=== PATIENT | female | born 1940 | race Two or more races ===

== ENCOUNTER 2016-03-30 11:05 | Emergency (ER) | payer MEDICARE, MEDICAID ==
[~2016-03-30] VITALS: Ht 142.2 cm; Wt 65.8 kg
[2016-03-30 12:40] LABS: Basophils # (auto) 0 uL; Basophils % (auto) 0.3 % (0.0-2.0); Eosinophils # (auto) 0.1 uL; Eosinophils % (auto) 1.7 % (0.0-7.0); Hematocrit 37.9 % (36.0-46.0); Hemoglobin 12.5 g/dL (12.2-16.2); Lymphocytes # (auto) 2.4 uL; Lymphocytes % (auto) 38.6 % (10.0-50.0); Mean Corpuscular Hemoglobin 30.9 pg (28.0-32.0); Mean Corpuscular Volume 93.6 fL (80.0-100.0); Mean Platelet Volume 8.1 fL (7.4-10.4); Monocytes # (auto) 0.3 uL; Monocytes % (auto) 4.4 % (0.0-12.0); Neutrophils # (auto) 3.5 uL; Platelet Count (auto) 257 10^3/uL (140-450); Red Cell Distribution Width 12.2 % (11.6-16.0); White Blood Cell 6.3 10^3/uL (4.4-10.8)
[2016-03-30 12:45] LABS: Albumin 3.8 g/dL (3.4-5.0); BUN/Creatinine Ratio 23.6; Bilirubin, Total 0.3 mg/dL (0.2-1.0); Calcium 9.2 mg/dL (8.5-10.1); Potassium 4.1 mmol/L (3.5-5.1); Total Protein 6.8 g/dL (6.4-8.2)
[2016-03-30] MEDS ORDERED: IOHEXOL 350 MG/ML 100ML IJ ONE (13:27)
[2016-03-30] MEDS ORDERED: CEPHALEXIN 250 MG CAP PO ONE (15:00)
[2016-03-30 15:06] VITALS: BP 111/78
== END 2016-03-30 15:37 | disposition home or self-care (01) ==
LOC: ER 11:18
DX: J40 Bronchitis, not specified as acute or chronic (principal); J45.909 Unspecified asthma, uncomplicated; E11.9 Type 2 diabetes mellitus without complications; I10 Essential (primary) hypertension
CPT/HCPCS: 36415; 71020; 71275; 80053; 82962; 85025; 85049; 85379; 93005; 94761; 99285; Q9967

== ENCOUNTER 2016-12-07 21:28 | Emergency (ER) | payer OTHER, MEDICAID ==
[~2016-12-07] VITALS: Ht 152.4 cm; Wt 65.8 kg
[~2016-12-07 21:28] MED LIST: ASPI-498 PO; ATOR20TA50 PO; CLON0.1T PO; FAM20T PO; GABA-494 PO; METF-370 PO; TRAZ50TA2 PO; [UNRECOGNIZED DRUG - CODE] EX
[2016-12-07 22:29] LABS: Basophils # (auto) 0 uL; Basophils % (auto) 0.4 % (0.0-2.0); Eosinophils # (auto) 0.2 uL; Eosinophils % (auto) 2.8 % (0.0-7.0); Hematocrit 37.7 % (36.0-46.0); Lymphocytes # (auto) 3.6 uL; Lymphocytes % (auto) 48.5 % (10.0-50.0); Mean Corpuscular Hemoglobin 32.3 pg (28.0-32.0); Mean Corpuscular Hgb Conc. 34.4 g/dL (32.0-36.0); Mean Corpuscular Volume 93.9 fL (80.0-100.0); Mean Platelet Volume 7.2 fL (6.9-10.8); Monocytes # (auto) 0.5 uL; Monocytes % (auto) 6.8 % (0.0-12.0); Neutrophils % (auto) 41.5 % (37.0-80.0); Nucleated Red Blood Cells % 0.1 %; Platelet Count (auto) 253 10^3/uL (140-450); White Blood Cell 7.3 10^3/uL (4.4-10.8)
[2016-12-07 22:39] LABS: INR 0.94 (0.9-1.15); Partial Thromboplastin Time 27.5 sec (22.64-33.71); Prothrombin Time 10.2 sec (9.37-12.3)
[2016-12-07 22:44] LABS: Albumin 3.9 g/dL (3.4-5.0); Anion Gap 9 (5-15); Aspartate Aminotransferase 13 U/L (15-37); BUN/Creatinine Ratio 22.7; Blood Urea Nitrogen 17 mg/dL (7-18); Calcium 9.2 mg/dL (8.5-10.1); Carbon Dioxide 26 mmol/L (21-32); Chloride 99 mmol/L (98-107); GFR African American 97 mL/min; GFR Non-African American 80 mL/min; Glucose 129 mg/dL (74-106); Magnesium 1.8 mg/dL (1.6-2.6); Potassium 4.3 mmol/L (3.5-5.1); Sodium 134 mmol/L (136-145)
[2016-12-07 22:48] LABS: Alkaline Phosphatase 58 U/L (45-117); Bilirubin, Total 0.3 mg/dL (0.2-1.0); Total Protein 7.2 g/dL (6.4-8.2)
[2016-12-07 22:52] LABS: B-Type Natriuretic Peptide 15.7 pg/mL (0-100)
[2016-12-07 22:57] LABS: Temperature: 21.9 C (20.0-25.0)
[2016-12-08 05:12] VITALS: BP 133/67
== END 2016-12-08 05:11 | disposition home or self-care (01) ==
LOC: ER 21:28
DX: R07.89 Other chest pain (principal); F41.9 Anxiety disorder, unspecified; E11.9 Type 2 diabetes mellitus without complications; E78.5 Hyperlipidemia, unspecified; I10 Essential (primary) hypertension; J45.909 Unspecified asthma, uncomplicated; I20.9 Angina pectoris, unspecified; Z79.899 Other long term (current) drug therapy; Z90.710 Acquired absence of both cervix and uterus
CPT/HCPCS: 36415; 71020; 80053; 83735; 83880; 84443; 84484; 85025; 85379; 85610; 85730; 93005

== ENCOUNTER 2016-12-28 15:34 | Emergency (ER) | payer OTHER, MEDICAID ==
[~2016-12-28] VITALS: Ht 152.4 cm; Wt 63.5 kg
[2016-12-28 16:26] LABS: Basophils # (auto) 0 uL; Basophils % (auto) 0.3 % (0.0-2.0); Eosinophils # (auto) 0.2 uL; Eosinophils % (auto) 2.3 % (0.0-7.0); Hematocrit 37.3 % (36.0-46.0); Hemoglobin 12.9 g/dL (12.2-16.2); Lymphocytes # (auto) 2.7 uL; Lymphocytes % (auto) 39.1 % (10.0-50.0); Mean Corpuscular Hemoglobin 32.6 pg (28.0-32.0); Mean Corpuscular Hgb Conc. 34.6 g/dL (32.0-36.0); Mean Corpuscular Volume 94.1 fL (80.0-100.0); Mean Platelet Volume 7.3 fL (6.9-10.8); Monocytes # (auto) 0.4 uL; Monocytes % (auto) 5.4 % (0.0-12.0); Neutrophils # (auto) 3.7 uL; Neutrophils % (auto) 52.9 % (37.0-80.0); Nucleated Red Blood Cells % 0.2 %; Platelet Count (auto) 257 10^3/uL (140-450); Red Cell Distribution Width 12.9 % (11.8-14.3); White Blood Cell 6.9 10^3/uL (4.4-10.8)
[2016-12-28 16:38] LABS: Albumin 3.6 g/dL (3.4-5.0); Anion Gap 9 (5-15); Aspartate Aminotransferase 14 U/L (15-37); BUN/Creatinine Ratio 22.2; Blood Urea Nitrogen 16 mg/dL (7-18); Calcium 8.5 mg/dL (8.5-10.1); Carbon Dioxide 24 mmol/L (21-32); Chloride 104 mmol/L (98-107); GFR African American 101 mL/min; GFR Non-African American 84 mL/min; Glucose 130 mg/dL (74-106); Potassium 4.2 mmol/L (3.5-5.1); Sodium 137 mmol/L (136-145)
[2016-12-28 16:43] LABS: Alkaline Phosphatase 54 U/L (45-117); Bilirubin, Total 0.2 mg/dL (0.2-1.0)
[2016-12-28 16:47] LABS: B-Type Natriuretic Peptide 46.43 pg/mL (0-100)
[2016-12-28 16:50] LABS: Temperature: 22.4 C (20.0-25.0)
[2016-12-28 16:54] LABS: Urine RBC None Seen /hpf (0 - 4)
[2016-12-28 17:21] LABS: Urine Bilirubin Negative (Negative); Urine Blood Negative /uL (Negative); Urine Color Yellow (Yellow); Urine Glucose Normal (Normal); Urine Ketone Negative (Negative); Urine Nitrite Negative (Negative); Urine Squamous Epithelial Cell FEW /hpf (<5); Urine Urobilinogen Normal (Negative); Urine pH 6.5 (5.0-8.0)
[2016-12-28 17:27] LABS: INR 0.93 (0.9-1.15); Prothrombin Time 10.1 sec (9.37-12.3)
[2016-12-28 18:39] VITALS: BP 136/92
== END 2016-12-28 18:51 | disposition home or self-care (01) ==
LOC: ER 15:37
DX: N39.0 Urinary tract infection, site not specified (principal); R53.1 Weakness; D64.9 Anemia, unspecified; E11.9 Type 2 diabetes mellitus without complications; I10 Essential (primary) hypertension; J44.9 Chronic obstructive pulmonary disease, unspecified; E78.5 Hyperlipidemia, unspecified; Z79.899 Other long term (current) drug therapy; Z90.710 Acquired absence of both cervix and uterus
CPT/HCPCS: 36415; 71020; 80053; 81001; 82962; 83735; 83880; 84484; 85025; 85379; 85610; 85730; 93005; 94761

== ENCOUNTER 2017-02-13 13:37 | Emergency (ER) | payer OTHER, MEDICAID ==
[~2017-02-13] VITALS: Ht 152.4 cm; Wt 63.5 kg
[2017-02-13 13:43] VITALS: BP 130/80
[2017-02-13 14:01] LABS: Basophils # (auto) 0 uL; Basophils % (auto) 0.3 % (0.0-2.0); Eosinophils # (auto) 0.1 uL; Eosinophils % (auto) 1.5 % (0.0-7.0); Hematocrit 38.5 % (36.0-46.0); Lymphocytes # (auto) 3.1 uL; Lymphocytes % (auto) 40.5 % (10.0-50.0); Mean Corpuscular Hemoglobin 31.3 pg (28.0-32.0); Mean Corpuscular Hgb Conc. 33.9 g/dL (32.0-36.0); Mean Corpuscular Volume 92.4 fL (80.0-100.0); Mean Platelet Volume 7.3 fL (6.9-10.8); Monocytes # (auto) 0.4 uL; Monocytes % (auto) 4.8 % (0.0-12.0); Neutrophils % (auto) 52.9 % (37.0-80.0); Nucleated Red Blood Cells % 0.1 %; Platelet Count (auto) 259 10^3/uL (140-450); Red Cell Distribution Width 12.9 % (11.8-14.3); White Blood Cell 7.6 10^3/uL (4.4-10.8)
[2017-02-13 14:31] LABS: Alkaline Phosphatase 58 U/L (45-117); Anion Gap 11 (5-15); Aspartate Aminotransferase 18 U/L (15-37); BUN/Creatinine Ratio 24.6; Bilirubin, Total 0.3 mg/dL (0.2-1.0); Blood Urea Nitrogen 17 mg/dL (7-18); Calcium 8.9 mg/dL (8.5-10.1); Carbon Dioxide 25 mmol/L (21-32); Chloride 99 mmol/L (98-107); GFR African American 106 mL/min; GFR Non-African American 88 mL/min; Glucose 106 mg/dL (74-106); Potassium 3.8 mmol/L (3.5-5.1); Sodium 135 mmol/L (136-145); Total Protein 7.6 g/dL (6.4-8.2)
== END 2017-02-13 20:58 | disposition left against medical advice (07) ==
LOC: ER 13:37
DX: R00.2 Palpitations (principal); R11.0 Nausea; Z53.21 Procedure and treatment not carried out due to patient leaving prior to being seen by health care provider
CPT/HCPCS: 36415; 80053; 83735; 84484; 85025; 93005

== ENCOUNTER 2017-09-03 06:54 | Day surgery (SDC) | payer OTHER, MEDICAID ==
[~2017-09-03] VITALS: Ht 160 cm; Wt 66.2 kg
[~2017-09-03 06:54] MED LIST changes: +ACLI1AER2 IN; +CARV3.1240 PO; +FURO20TA3 PO; -GABA-494 PO; +GABA100C9 PO; +GLIP-116 PO; +INSLANTI SC; +ISOS30TA4 PO; +NITR0.4S29 SL; +OLME40TA27 PO; +OMEP20TA PO; +SIMV-13 PO
[2017-09-03] MEDS ORDERED: IODIXANOL 320MG/ML 100ML BTL IV ONE (07:18)
[2017-09-03] MEDS ORDERED: LIDOCAINE 2%HCL (LOCAL ANESTH.) INJ 20ML MDV ONE (07:18)
[2017-09-03] MEDS ORDERED: ANGIOMAX 250 MG VIAL IV ONE (08:00)
[2017-09-03] MEDS ORDERED: VERAPAMIL 2.5MG/ML INJ 2ML VIAL IV ONE (08:00)
[2017-09-03] MEDS ORDERED: MIDAZOLAM HCL 1MG/1ML-2 ML VIAL ONE (08:00)
[2017-09-03] MEDS ORDERED: fentaNYL CITRATE 100 MCG/2 ML VL ONE ×2 (08:00)
[2017-09-03] MEDS ORDERED: SODIUM CHL 0.9% 50 ML ONE (08:01)
[2017-09-03] MEDS ORDERED: ACETAMINOPHEN 325 MG TAB PO ONE (15:00)
[2017-09-03] MEDS ORDERED: ASPirin 81 mg TAB PO ONE (15:00)
== END 2017-09-03 15:25 | disposition home or self-care (01) ==
LOC: CATH 06:54
PROVIDERS: ATTEND Internal Medicine
DX: I25.119 Atherosclerotic heart disease of native coronary artery with unspecified angina pectoris (principal); I99.8 Other disorder of circulatory system; I10 Essential (primary) hypertension; E78.5 Hyperlipidemia, unspecified; J44.9 Chronic obstructive pulmonary disease, unspecified; J43.9 Emphysema, unspecified; E11.9 Type 2 diabetes mellitus without complications; Z79.82 Long term (current) use of aspirin; Z79.899 Other long term (current) drug therapy; Z83.3 Family history of diabetes mellitus; Z79.891 Long term (current) use of opiate analgesic; Z79.84 Long term (current) use of oral hypoglycemic drugs
CPT/HCPCS: 82962; 92920; 93454; C1725; C1769; C1887; C1894; J0583; J1644; J2250; J3010; J7030; Q9967; 99152; 99153

== ENCOUNTER 2017-10-16 10:17 | Inpatient (IN) | payer OTHER, MEDICAID ==
[~2017-10-16] VITALS: Ht 152.4 cm; Wt 63.5 kg
[~2017-10-16 10:17] MED LIST changes: -ATOR20TA50 PO; +BECL80AE9 IN; -CLON0.1T PO; -FAM20T PO; -NITR0.4S29 SL; -[UNRECOGNIZED DRUG - CODE] EX
[2017-10-16 11:14] LABS: Basophils # (auto) 0 uL; Basophils % (auto) 0.2 % (0.0-2.0); Eosinophils # (auto) 0.1 uL; Eosinophils % (auto) 2.1 % (0.0-7.0); Hematocrit 37.9 % (36.0-46.0); Hemoglobin 12.8 g/dL (12.2-16.2); Lymphocytes # (auto) 2.3 uL; Lymphocytes % (auto) 37.6 % (10.0-50.0); Mean Corpuscular Hgb Conc. 33.7 g/dL (32.0-36.0); Monocytes # (auto) 0.4 uL; Monocytes % (auto) 6.1 % (0.0-12.0); Neutrophils # (auto) 3.2 uL; Nucleated Red Blood Cells % 0.1 %; Platelet Count (auto) 269 10^3/uL (140-450); Red Blood Cells 4.11 10^6/uL (4.0-5.20)
[2017-10-16 11:45] LABS: Alanine Aminotransferase 24 U/L (13-56); Albumin 3.9 g/dL (3.4-5.0); Alkaline Phosphatase 66 U/L (45-117); Anion Gap 10 (5-15); Aspartate Aminotransferase 14 U/L (15-37); BUN/Creatinine Ratio 13.3; Bilirubin, Total 0.4 mg/dL (0.2-1.0); Blood Urea Nitrogen 10 mg/dL (7-18); Calcium 8.6 mg/dL (8.5-10.1); Carbon Dioxide 23 mmol/L (21-32); Chloride 91 mmol/L (98-107); GFR African American 96 mL/min; GFR Non-African American 80 mL/min; Glucose 168 mg/dL (74-106); Potassium 4.5 mmol/L (3.5-5.1); Sodium 124 mmol/L (136-145); Total Protein 7.8 g/dL (6.4-8.2)
[2017-10-16] MEDS ORDERED: SODIUM CHLORIDE 0.9% 1,000 ML IV ONE (12:24)
[2017-10-16] MEDS ORDERED: PROMETHAZINE HCL 25 MG/ML 1ML IV PRN (13:00)
[2017-10-16] MEDS ORDERED: LORazepam 0.5 MG TAB PO PRN (13:00)
[2017-10-16] MEDS ORDERED: NITROGLYCERIN 0.4 MG SL TAB SL PRN (13:00)
[2017-10-16] MEDS ORDERED: LACTULOSE 20Gm/30ML SOLN PO PRN (13:00)
[2017-10-16] MEDS ORDERED: ALBUTEROL SULF 2.5 MG/0.5ML(0.5%) NEB SOLN NEB PRN (13:00)
[2017-10-16] MEDS ORDERED: TEMAZEPAM 15 MG CAP PO PRN (13:00)
[2017-10-16] MEDS ORDERED: ACETAMINOPHEN 500 MG TAB PO PRN (13:00)
[2017-10-16] MEDS ORDERED: HYDROcodone-ACET 5/325MG TAB PO PRN (13:00)
[2017-10-16] MEDS ORDERED: DEXTROSE (50%) 50ML SYRG IV PRN (13:00)
[2017-10-16] MEDS ORDERED: MORPHINE SULFATE 4 MG/ML SYR/VIAL IV PRN ×2 (13:00)
[2017-10-16] MEDS: SODIUM CHLORIDE 0.9% 1,000 ML IV SCH (13:15)
[2017-10-16] MEDS: glipiZIDE 5 MG TAB PO SCH (13:30)
[2017-10-16] MEDS: ISOSORBIDE MONONITRATE 60 MG TAB PO SCH ×2 (13:30→22:42)
[2017-10-16] MEDS: traZODone HCL 50 MG TAB PO SCH ×2 (13:30→22:41)
[2017-10-16] MEDS: FUROSEMIDE 20 MG TAB PO SCH (13:30)
[2017-10-16] MEDS: GABAPENTIN 100 MG CAP PO SCH (13:30)
[2017-10-16] MEDS ORDERED: CARVEDILOL 3.125 MG TAB PO ONE (13:45)
[2017-10-16] MEDS ORDERED: PANTOPRAZOLE 40 MG TAB PO ONE (13:45)
[2017-10-16] MEDS ORDERED: ASPirin 81 mg TAB PO ONE (13:45)
[2017-10-16] MEDS ORDERED: LOSARTAN POTASSIUM 50 MG TAB PO ONE (13:45)
[2017-10-16 16:24] LABS: Amylase 56 U/L (25-115); Lipase 158 U/L (73-393)
[2017-10-16] MEDS: ACCU-CHEK COMFORT CURVE STRIP VI SCH ×2 (16:31→22:43)
[2017-10-16] MEDS: InsuLIN REG 1unit/0.01ml Soln (100units/ml) SC SCH ×2 (16:40→22:00)
[2017-10-16 20:50] VITALS: BP 161/84
[2017-10-16 22:00] VITALS: BP 161/84
[2017-10-16] MEDS ORDERED: INSULIN LANTUS (GLARGINE) 1 /0.01ml (100units/ml) SC SCH (22:00)
[2017-10-16] MEDS ORDERED: ATORVASTATIN 20 MG TAB PO SCH (22:00)
[2017-10-16] MEDS: BECLOMETHASONE DIPROPIONATE 80 MCG IN SCH (22:00)
[2017-10-16] MEDS: CARVEDILOL 3.125 MG TAB PO SCH (22:41)
[2017-10-16 23:44] VITALS: BP 161/84
[2017-10-17] MEDS: SODIUM CHLORIDE 0.9% 1,000 ML IV SCH (02:09)
[2017-10-17 05:00] VITALS: BP 83/44
[2017-10-17] MEDS: InsuLIN REG 1unit/0.01ml Soln (100units/ml) SC SCH ×3 (06:31→17:00)
[2017-10-17] MEDS: ACCU-CHEK COMFORT CURVE STRIP VI SCH ×3 (06:31→17:16)
[2017-10-17] MEDS ORDERED: SODIUM CHLORIDE 0.9% 500 ML IV ONE (07:00)
[2017-10-17 09:00] VITALS: BP 108/43
[2017-10-17] MEDS: GABAPENTIN 100 MG CAP PO SCH (09:56)
[2017-10-17] MEDS: FUROSEMIDE 20 MG TAB PO SCH (10:00)
[2017-10-17] MEDS ORDERED: ASPirin 81 mg TAB PO SCH (10:00)
[2017-10-17] MEDS: CARVEDILOL 3.125 MG TAB PO SCH (10:00)
[2017-10-17] MEDS: BECLOMETHASONE DIPROPIONATE 80 MCG IN SCH (10:00)
[2017-10-17] MEDS ORDERED: PANTOPRAZOLE 40 MG TAB PO SCH (10:00)
[2017-10-17] MEDS ORDERED: LOSARTAN POTASSIUM 50 MG TAB PO SCH (10:00)
[2017-10-17] MEDS: glipiZIDE 5 MG TAB PO SCH (10:03)
[2017-10-17] MEDS ORDERED: RANO500T2 PO (10:26)
[2017-10-17 13:00] VITALS: BP 114/71
[2017-10-17] MEDS ORDERED: OLME20TA19 PO (14:13)
[2017-10-17 17:00] VITALS: BP 148/75
[2017-10-17 17:28] VITALS: BP 80/42
[2017-10-17 17:37] VITALS: BP 80/42
== END 2017-10-17 18:30 | disposition home or self-care (01) | DRG 313 ==
LOC: ER 10:19 → TELE 10:20 → TELE-CENTR 20:50
PROVIDERS: ADMIT Internal Medicine; ATTEND Hospitalist
DX: R07.9 Chest pain, unspecified (principal); I25.110 Atherosclerotic heart disease of native coronary artery with unstable angina pectoris; E87.1 Hypo-osmolality and hyponatremia; I10 Essential (primary) hypertension; J45.909 Unspecified asthma, uncomplicated; E11.42 Type 2 diabetes mellitus with diabetic polyneuropathy; D64.9 Anemia, unspecified; E78.5 Hyperlipidemia, unspecified; I70.0 Atherosclerosis of aorta; Z90.710 Acquired absence of both cervix and uterus
CPT/HCPCS: 36415; 71046; 74176; 80053; 82150; 82550; 82962; 83036; 83690; 84484; 85025; 85652; 86141; 87081; 93005; 96360; 96361; J1815

== ENCOUNTER 2017-10-23 21:49 | Emergency (ER) | payer MEDICAID, OTHER ==
[~2017-10-23] VITALS: Ht 152.4 cm; Wt 77.1 kg
[~2017-10-23 21:49] MED LIST changes: +OLME20TA19 PO; -OLME40TA27 PO; +RANO500T2 PO
[2017-10-23 22:18] LABS: Basophils # (auto) 0 uL; Basophils % (auto) 0.3 % (0.0-2.0); Eosinophils # (auto) 0.2 uL; Eosinophils % (auto) 2.6 % (0.0-7.0); Hematocrit 33.7 % (36.0-46.0); Lymphocytes # (auto) 2.8 uL; Lymphocytes % (auto) 45.6 % (10.0-50.0); Mean Corpuscular Hemoglobin 32.1 pg (28.0-32.0); Mean Corpuscular Hgb Conc. 35.7 g/dL (32.0-36.0); Monocytes # (auto) 0.4 uL; Monocytes % (auto) 7.2 % (0.0-12.0); Neutrophils # (auto) 2.8 uL; Neutrophils % (auto) 44.3 % (37.0-80.0); Nucleated Red Blood Cells % 0.1 %; Platelet Count (auto) 236 10^3/uL (140-450); Red Blood Cells 3.75 10^6/uL (4.0-5.20); Red Cell Distribution Width 13.1 % (11.8-14.3); White Blood Cell 6.2 10^3/uL (4.4-10.8)
[2017-10-23 22:39] LABS: Alanine Aminotransferase 22 U/L (13-56); Albumin 3.7 g/dL (3.4-5.0); Alkaline Phosphatase 56 U/L (45-117); Anion Gap 10 (5-15); Aspartate Aminotransferase 15 U/L (15-37); BUN/Creatinine Ratio 14.9; Bilirubin, Total 0.4 mg/dL (0.2-1.0); Blood Urea Nitrogen 10 mg/dL (7-18); Calcium 8.6 mg/dL (8.5-10.1); Carbon Dioxide 22 mmol/L (21-32); Chloride 89 mmol/L (98-107); GFR African American 110 mL/min; GFR Non-African American 91 mL/min; Glucose 138 mg/dL (74-106); Potassium 3.3 mmol/L (3.5-5.1); Sodium 121 mmol/L (136-145); Total Protein 6.9 g/dL (6.4-8.2)
[2017-10-24] MEDS ORDERED: SODIUM CHLORIDE 0.9% 1,000 ML IV ONE (04:15)
[2017-10-24] MEDS ORDERED: POTASSIUM CHL 20 Meq TABLET PO ONE (04:15)
[2017-10-24 04:40] LABS: INR 0.93 (0.9-1.15)
[2017-10-24 05:44] LABS: Urine WBC None Seen /hpf (0 - 5)
[2017-10-24 05:51] LABS: Urine Bacteria NONE SEEN /hpf (None Seen); Urine Blood Negative /uL (Negative); Urine Specific Gravity 1.003 (1.001-1.035)
[2017-10-24 07:38] VITALS: BP 107/68
== END 2017-10-24 07:27 | disposition home or self-care (01) ==
LOC: EDBD 21:49 → ER 21:55
DX: R07.89 Other chest pain (principal); K57.90 Diverticulosis of intestine, part unspecified, without perforation or abscess without bleeding; J45.909 Unspecified asthma, uncomplicated; I25.10 Atherosclerotic heart disease of native coronary artery without angina pectoris; I11.0 Hypertensive heart disease with heart failure; I50.9 Heart failure, unspecified; E11.9 Type 2 diabetes mellitus without complications; E78.00 Pure hypercholesterolemia, unspecified; Z90.710 Acquired absence of both cervix and uterus; Z79.82 Long term (current) use of aspirin
CPT/HCPCS: 36415; 71045; 74176; 80053; 81001; 83880; 84484; 85025; 85610

== ENCOUNTER 2017-11-08 18:16 | Inpatient (IN) | payer OTHER, MEDICAID ==
[~2017-11-08] VITALS: Ht 152.4 cm; Wt 54.4 kg
[2017-11-08] MEDS ORDERED: MORPHINE SULFATE 4 MG/ML SYR/VIAL IV ONE (18:45)
[2017-11-08] MEDS ORDERED: NITROGLYCERIN 0.4 MG SL TAB SL ONE (18:45)
[2017-11-08] MEDS ORDERED: ASPirin 325 MG TAB PO ONE (18:45)
[2017-11-08 19:12] LABS: Basophils # (auto) 0 uL; Basophils % (auto) 0.3 % (0.0-2.0); Eosinophils # (auto) 0.1 uL; Eosinophils % (auto) 1.4 % (0.0-7.0); Hematocrit 34.9 % (36.0-46.0); Hemoglobin 12.1 g/dL (12.2-16.2); Lymphocytes # (auto) 2.5 uL; Lymphocytes % (auto) 42.4 % (10.0-50.0); Mean Corpuscular Hemoglobin 32.2 pg (28.0-32.0); Mean Corpuscular Hgb Conc. 34.6 g/dL (32.0-36.0); Mean Corpuscular Volume 92.9 fL (80.0-100.0); Monocytes # (auto) 0.4 uL; Monocytes % (auto) 7.1 % (0.0-12.0); Neutrophils # (auto) 2.8 uL; Neutrophils % (auto) 48.8 % (37.0-80.0); Nucleated Red Blood Cells % 0.1 %; Platelet Count (auto) 258 10^3/uL (140-450); Red Blood Cells 3.76 10^6/uL (4.0-5.20); Red Cell Distribution Width 13.5 % (11.8-14.3); White Blood Cell 5.8 10^3/uL (4.4-10.8)
[2017-11-08 19:28] LABS: Alanine Aminotransferase 18 U/L (13-56); Albumin 3.5 g/dL (3.4-5.0); Alkaline Phosphatase 51 U/L (45-117); Anion Gap 12 (5-15); Aspartate Aminotransferase 13 U/L (15-37); BUN/Creatinine Ratio 14.5; Bilirubin, Total 0.3 mg/dL (0.2-1.0); Blood Urea Nitrogen 9 mg/dL (7-18); Calcium 8.5 mg/dL (8.5-10.1); Carbon Dioxide 22 mmol/L (21-32); Chloride 92 mmol/L (98-107); GFR African American 120 mL/min; GFR Non-African American 99 mL/min; Glucose 127 mg/dL (74-106); Magnesium 1.7 mg/dL (1.6-2.6); Potassium 3.8 mmol/L (3.5-5.1); Sodium 126 mmol/L (136-145); Total Protein 6.8 g/dL (6.4-8.2)
[2017-11-08] MEDS ORDERED: LABETALOL HCL 5 MG/ML ML 20ML VIAL IV ONE (19:45)
[2017-11-08 20:15] VITALS: BP 164/76
[2017-11-08] MEDS ORDERED: ONDANSETRON HCL 4 MG/2 ML VIAL IV PRN (20:30)
[2017-11-08] MEDS ORDERED: ALBUTEROL SULF 2.5 MG/0.5ML(0.5%) NEB SOLN NEB PRN (20:30)
[2017-11-08] MEDS ORDERED: ACETAMINOPHEN 500 MG TAB PO PRN (20:30)
[2017-11-08] MEDS ORDERED: HYDROcodone-ACET 5/325MG TAB PO PRN (20:30)
[2017-11-08] MEDS ORDERED: DEXTROSE (50%) 50ML SYRG IV PRN (20:30)
[2017-11-08] MEDS ORDERED: cloNIDine HCL 0.1 MG TAB PO ONE (21:00)
[2017-11-08] MEDS ORDERED: LORazepam 0.5 MG TAB PO PRN (21:15)
[2017-11-08] MEDS ORDERED: NITROGLYCERIN 0.4 MG SL TAB SL PRN (21:15)
[2017-11-08] MEDS ORDERED: MORPHINE SULF INJ 2 MG/ML SYRINGE 1ML IV PRN (21:15)
[2017-11-08] MEDS ORDERED: traZODone HCL 50 MG TAB PO SCH (22:00)
[2017-11-08] MEDS: CARVEDILOL 3.125 MG TAB PO SCH (23:08)
[2017-11-08] MEDS: GABAPENTIN 100 MG CAP PO SCH (23:09)
[2017-11-08] MEDS: ACCU-CHEK COMFORT CURVE STRIP VI SCH (23:09)
[2017-11-08] MEDS: InsuLIN REG 1unit/0.01ml Soln (100units/ml) SC SCH (23:09)
[2017-11-09 05:00] VITALS: BP 115/58
[2017-11-09 05:41] LABS: Basophils # (auto) 0 uL; Basophils % (auto) 0.3 % (0.0-2.0); Eosinophils # (auto) 0.1 uL; Eosinophils % (auto) 2.4 % (0.0-7.0); Hematocrit 37.1 % (36.0-46.0); Hemoglobin 12.7 g/dL (12.2-16.2); Lymphocytes # (auto) 2.1 uL; Lymphocytes % (auto) 45.5 % (10.0-50.0); Mean Corpuscular Hemoglobin 31.3 pg (28.0-32.0); Mean Corpuscular Hgb Conc. 34.2 g/dL (32.0-36.0); Mean Corpuscular Volume 91.5 fL (80.0-100.0); Monocytes # (auto) 0.3 uL; Monocytes % (auto) 6.9 % (0.0-12.0); Neutrophils # (auto) 2.1 uL; Neutrophils % (auto) 44.9 % (37.0-80.0); Nucleated Red Blood Cells % 0.1 %; Platelet Count (auto) 267 10^3/uL (140-450); Red Blood Cells 4.05 10^6/uL (4.0-5.20); Red Cell Distribution Width 13.3 % (11.8-14.3); White Blood Cell 4.7 10^3/uL (4.4-10.8)
[2017-11-09 06:00] LABS: BUN/Creatinine Ratio 17.5; Calcium 8.6 mg/dL (8.5-10.1); Potassium 3.8 mmol/L (3.5-5.1)
[2017-11-09] MEDS: InsuLIN REG 1unit/0.01ml Soln (100units/ml) SC SCH ×3 (06:43→17:00)
[2017-11-09] MEDS: GABAPENTIN 100 MG CAP PO SCH ×2 (06:43→14:46)
[2017-11-09] MEDS: ACCU-CHEK COMFORT CURVE STRIP VI SCH ×3 (06:44→17:00)
[2017-11-09 09:00] VITALS: BP 93/54
[2017-11-09] MEDS: CARVEDILOL 3.125 MG TAB PO SCH (10:00)
[2017-11-09] MEDS ORDERED: ISOSORBIDE MONONITRATE 60 MG TAB PO SCH (10:00)
[2017-11-09] MEDS ORDERED: ASPirin-EC 81 mg tab PO SCH (10:00)
[2017-11-09] MEDS ORDERED: FAMOTIDINE 20 MG TAB PO SCH (10:00)
[2017-11-09] MEDS ORDERED: FUROSEMIDE 40 MG TAB PO SCH (10:00)
[2017-11-09 11:14] VITALS: BP 93/51
[2017-11-09 13:00] VITALS: BP 113/59
[2017-11-09] MEDS ORDERED: RANO500T2 PO (16:22)
[2017-11-09] MEDS ORDERED: INSULIN LANTUS (GLARGINE) 1 /0.01ml (100units/ml) SC SCH (22:00)
== END 2017-11-09 19:14 | disposition home or self-care (01) | DRG 305 ==
LOC: EDBD 18:16 → ER 18:23 → TELE 18:24 → TELE-WESTW 22:15
PROVIDERS: ADMIT Nurse Practitioner Family; ATTEND Nurse Practitioner Family
DX: I16.0 Hypertensive urgency (principal); I25.110 Atherosclerotic heart disease of native coronary artery with unstable angina pectoris; D64.9 Anemia, unspecified; E11.9 Type 2 diabetes mellitus without complications; I11.0 Hypertensive heart disease with heart failure; E78.00 Pure hypercholesterolemia, unspecified; I50.9 Heart failure, unspecified; J44.9 Chronic obstructive pulmonary disease, unspecified; Z79.4 Long term (current) use of insulin; Z82.49 Family history of ischemic heart disease and other diseases of the circulatory system; Z90.710 Acquired absence of both cervix and uterus; Z79.899 Other long term (current) drug therapy; Z79.82 Long term (current) use of aspirin; Z95.5 Presence of coronary angioplasty implant and graft; Z83.3 Family history of diabetes mellitus
CPT/HCPCS: 36415; 71045; 80048; 80053; 82962; 83735; 83880; 84484; 85025; 87081; 93005; 94640; 94761; 96374; 99291; J1815

== ENCOUNTER 2020-08-01 18:19 | Inpatient (IN) | payer OTHER, MEDICAID ==
[~2020-08-01] VITALS: Ht 157.5 cm; Wt 61.0 kg
[~2020-08-01 18:19] MED LIST changes: -GLIP-116 PO; +GLIP10TA9 PO; +ISOS1TAB28 PO; -ISOS30TA4 PO; -OLME20TA19 PO; +OLME20TA53 PO
[2020-08-01 19:17] LABS: Basophils # (auto) 0 10 ^3/uL (0-0.2); Basophils % (auto) 0.2 % (0.0-2.0); Eosinophils # (auto) 0.1 10 ^3/uL (0-0.8); Eosinophils % (auto) 1.7 % (0.0-7.0); Hematocrit 33.1 % (36.0-46.0); Hemoglobin 11.3 g/dL (12.2-16.2); Lymphocytes # (auto) 3.1 10 ^3/uL (0.4-5.4); Lymphocytes % (auto) 46.4 % (10.0-50.0); Mean Corpuscular Hemoglobin 28.8 pg (28.0-32.0); Mean Corpuscular Hgb Conc. 34.1 g/dL (32.0-36.0); Mean Corpuscular Volume 84.7 fL (80.0-100.0); Monocytes # (auto) 0.5 10 ^3/uL (0-1.3); Monocytes % (auto) 6.9 % (0.0-12.0); Neutrophils % (auto) 44.8 % (37.0-80.0); Nucleated Red Blood Cells % 0.1 %; Platelet Count (auto) 237 10^3/uL (140-450); Red Blood Cells 3.91 10^6/uL (4.0-5.20); Red Cell Distribution Width 16.6 % (11.8-14.3); White Blood Cell 6.7 10^3/uL (4.4-10.8)
[2020-08-01 19:34] LABS: Alanine Aminotransferase 17 U/L (13-56); Albumin 3.5 g/dL (3.4-5.0); Anion Gap 12 (5-15); Aspartate Aminotransferase 11 U/L (15-37); BUN/Creatinine Ratio 18.1; Blood Urea Nitrogen 13 mg/dL (7-18); Calcium 8.6 mg/dL (8.5-10.1); Carbon Dioxide 21 mmol/L (21-32); Chloride 97 mmol/L (98-107); GFR African American 100 mL/min; GFR Non-African American 83 mL/min; Glucose 141 mg/dL (74-106); Magnesium 1.3 mg/dL (1.6-2.6); Potassium 3.5 mmol/L (3.5-5.1); Sodium 130 mmol/L (136-145)
[2020-08-01 19:39] LABS: Alkaline Phosphatase 48 U/L (45-117); Bilirubin, Total 0.3 mg/dL (0.2-1.0); Total Protein 6.9 g/dL (6.4-8.2)
[2020-08-01 22:10] LABS: Urine WBC None Seen /hpf (0 - 5)
[2020-08-01 22:31] LABS: Urine Bacteria NONE SEEN /hpf (None Seen); Urine Blood Negative /uL (Negative); Urine Specific Gravity 1.004 (1.001-1.035)
[2020-08-01] MEDS ORDERED: ONDANSETRON HCL 4 MG/2 ML VIAL IV PRN (23:45)
[2020-08-01] MEDS ORDERED: MORPHINE SULF INJ 2 MG/ML SYRINGE 1ML IV PRN (23:45)
[2020-08-01] MEDS ORDERED: NITROGLYCERIN 0.4 MG SL TAB SL PRN (23:45)
[2020-08-01] MEDS ORDERED: ACETAMINOPHEN 325 MG TAB PO PRN (23:45)
[2020-08-01] MEDS ORDERED: DEXTROSE (50%) 50ML SYRG IV PRN (23:45)
[2020-08-02] MEDS: TEMAZEPAM 15 MG CAP PO PRN ×2 (02:19→21:46)
[2020-08-02] MEDS: InsuLIN REG 1unit/0.01ml Soln (100units/ml) SC SCH ×4 (06:21→21:51)
[2020-08-02] MEDS: ACCU-CHEK COMFORT CURVE STRIP VI SCH ×4 (06:21→21:51)
[2020-08-02 07:05] LABS: Basophils # (auto) 0 10 ^3/uL (0-0.2); Basophils % (auto) 0.2 % (0.0-2.0); Eosinophils # (auto) 0.1 10 ^3/uL (0-0.8); Eosinophils % (auto) 2.1 % (0.0-7.0); Hematocrit 33.5 % (36.0-46.0); Hemoglobin 11.3 g/dL (12.2-16.2); Lymphocytes % (auto) 50.3 % (10.0-50.0); Mean Corpuscular Hemoglobin 28.7 pg (28.0-32.0); Mean Corpuscular Hgb Conc. 33.7 g/dL (32.0-36.0); Mean Corpuscular Volume 85.2 fL (80.0-100.0); Monocytes # (auto) 0.5 10 ^3/uL (0-1.3); Monocytes % (auto) 7.7 % (0.0-12.0); Neutrophils # (auto) 2.3 10 ^3/uL (1.6-8.6); Neutrophils % (auto) 39.7 % (37.0-80.0); Nucleated Red Blood Cells % 0.1 %; Platelet Count (auto) 237 10^3/uL (140-450); Red Blood Cells 3.93 10^6/uL (4.0-5.20); Red Cell Distribution Width 16.7 % (11.8-14.3); White Blood Cell 5.9 10^3/uL (4.4-10.8)
[2020-08-02 07:21] LABS: Albumin 3.5 g/dL (3.4-5.0); Calcium 8.8 mg/dL (8.5-10.1); Potassium 3.7 mmol/L (3.5-5.1)
[2020-08-02 07:25] LABS: Bilirubin, Total 0.4 mg/dL (0.2-1.0); Total Protein 6.9 g/dL (6.4-8.2)
[2020-08-02] MEDS ORDERED: ADENOSINE 57 MG in GIVE UN-DILUTED 0 ML IV STA (08:34)
[2020-08-02] MEDS ORDERED: SODIUM CHLORIDE 0.9% 1,000 ML IV SCH (09:45)
[2020-08-02] MEDS: RANOLAZINE ER 500 MG TAB PO SCH ×3 (10:00→21:51)
[2020-08-02] MEDS ORDERED: FAMOTIDINE 20 MG TAB PO SCH (10:00)
[2020-08-02] MEDS: ASPirin 81 mg TAB PO SCH (10:28)
[2020-08-02] MEDS: ISOSORBIDE MONONITRATE ER 60 MG TAB PO SCH (10:29)
[2020-08-02] MEDS: ENOXAPARIN SOD 40 MG/0.4 ML SYRINGE SC SCH (10:30)
[2020-08-02] MEDS: CARVEDILOL 3.125 MG TAB PO SCH ×2 (10:30→21:50)
[2020-08-02] MEDS: FUROSEMIDE 20 MG TAB PO SCH (10:30)
[2020-08-02 12:42] VITALS: BP 130/73
[2020-08-02] MEDS: LISINOPRIL 5 MG TAB PO SCH (13:31)
[2020-08-02 15:26] VITALS: BP 130/73
[2020-08-02 16:33] VITALS: BP 79/46
[2020-08-02 17:32] VITALS: BP 100/59
[2020-08-02] MEDS: SODIUM CHLORIDE 0.9% 1,000 ML IV SCH (18:29)
[2020-08-02 22:00] VITALS: BP 92/51
[2020-08-02] MEDS ORDERED: ATORVASTATIN 20 MG TAB PO SCH (22:00)
[2020-08-03] MEDS: SODIUM CHLORIDE 0.9% 1,000 ML IV SCH ×2 (02:20→15:40)
[2020-08-03 05:00] VITALS: BP 140/68
[2020-08-03] MEDS: InsuLIN REG 1unit/0.01ml Soln (100units/ml) SC SCH ×3 (06:09→17:00)
[2020-08-03] MEDS: ACCU-CHEK COMFORT CURVE STRIP VI SCH ×3 (06:09→17:00)
[2020-08-03 08:11] VITALS: BP 133/91
[2020-08-03] MEDS: ENOXAPARIN SOD 40 MG/0.4 ML SYRINGE SC SCH (10:00)
[2020-08-03] MEDS: FUROSEMIDE 20 MG TAB PO SCH (10:00)
[2020-08-03] MEDS: CARVEDILOL 3.125 MG TAB PO SCH (10:00)
[2020-08-03] MEDS ORDERED: PANTOPRAZOLE 40 MG TAB PO SCH (10:00)
[2020-08-03] MEDS: LISINOPRIL 5 MG TAB PO SCH (10:00)
[2020-08-03] MEDS: ASPirin 81 mg TAB PO SCH (10:00)
[2020-08-03] MEDS: RANOLAZINE ER 500 MG TAB PO SCH (10:00)
[2020-08-03] MEDS: ISOSORBIDE MONONITRATE ER 60 MG TAB PO SCH (10:00)
[2020-08-03 12:33] VITALS: BP 152/86
[2020-08-03 16:23] VITALS: BP 146/78
[2020-08-03 18:01] VITALS: BP 152/86
== END 2020-08-03 18:56 | disposition home or self-care (01) | DRG 305 ==
LOC: EDBD 18:19 → ER 18:22 → TELE 23:40 → TELE-WESTW 08-02 12:20
PROVIDERS: ADMIT Nurse Practitioner; ATTEND Internal Medicine
DX: I16.0 Hypertensive urgency (principal); I25.110 Atherosclerotic heart disease of native coronary artery with unstable angina pectoris; E11.9 Type 2 diabetes mellitus without complications; E66.9 Obesity, unspecified; E78.5 Hyperlipidemia, unspecified; J44.9 Chronic obstructive pulmonary disease, unspecified; R79.1 Abnormal coagulation profile; I11.0 Hypertensive heart disease with heart failure; M71.21 Synovial cyst of popliteal space [Baker], right knee; Z20.822 Contact with and (suspected) exposure to COVID-19; Z90.710 Acquired absence of both cervix and uterus; Z82.49 Family history of ischemic heart disease and other diseases of the circulatory system; Z83.3 Family history of diabetes mellitus; I50.9 Heart failure, unspecified
CPT/HCPCS: 36415; 71045; 71275; 78452; 80053; 81001; 82962; 83735; 83880; 84484; 85025; 85379; 87426; 93005; 93017; 93306; 93970; 96360; 96361; 96372; G0378; J0153; J1815